=== PATIENT | female | born 1975 | race African-American/Black ===

== ENCOUNTER 2024-07-18 13:57 | Emergency (ER) | payer OTHER, SELFPAY ==
[2024-07-18 14:05] VITALS: BP 152/92
[2024-07-18 14:26] LABS: % Basophils 0.4 % (0-2); % Eosinophils 1.5 % (0-6); % Immature Granulocytes 0.3 % (0-0.5); % Lymphocytes 34.8 % (20.5-51.1); % Monocytes 6.6 % (1.7-9.3); % Neutrophils 56.4 % (42.2-75.2); Absolute Eosinophils 0.1 10^3/uL (0-0.7); Absolute Lymphocytes 2.5 10^3/uL (1.2-3.4); Absolute Monocytes 0.5 10^3/uL (0.1-0.6); Absolute Neutrophils 4.1 10^3/uL (1.4-6.5); Hematocrit 36.2 % (37.0-47.0); Hemoglobin 11.8 g/dL (12.0-16.0); Mean Corp Hgb Conc. 32.6 g/dL (33.0-37.0); Mean Corpuscular Volume 82.8 fL (81.0-99.0); Mean Platelet Volume 9.1 fL (7.4-10.4); Nucleated Red Blood Cells % 0 %; Platelet Count 368 10^3/uL (130-400); Red Blood Cell Count 4.37 10^6/uL (4.20-5.40); Red Cell Dist. Width 14.6 % (11.5-14.5); White Blood Cell Count 7.3 10^3/uL (4.8-10.8)
[2024-07-18 14:36] LABS: INR 0.93; PT 12.8 Sec (11.4-14.6)
[2024-07-18 14:54] LABS: Troponin I < 0.012 ng/ml
[2024-07-18 15:00] LABS: ALT (SGPT) 13 U/L (0-35); AST (SGOT) 17 U/L (14-36); Albumin 4.6 g/dl (3.5-5.0); Alkaline Phosphatase 120 U/L (38-126); Blood Urea Nitrogen 12 mg/dl (7-17); Calcium 9.3 mg/dl (8.4-10.2); Carbon Dioxide 24 mmol/L (22-30); Chloride 111 mmol/L (98-107); Glucose 136 mg/dl (70-99); Potassium 4.3 mmol/L (3.5-5.1); Sodium 143 mmol/L (135-145); Total Bilirubin 0.2 mg/dl (0.2-1.3); Total Protein 7.5 g/dl (6.3-8.2); eGFR > 60.00
[2024-07-18 15:30] LABS: TSH Reflex To Free T4 1.01 uIU/ml (0.47-4.68)
[2024-07-18 16:13] VITALS: BP 125/79
--- NOTE | 2024-07-18 16:31 | ED.GENMED ---
History of Present Illness
General
Chief Complaint: Heart Rate Problem
Source: patient
Exam Limitations: none
Time Seen by Provider: 07/18/24 16:25
Nursing documentation reviewed up to this point in time: agreed with
History of Present Illness
History of Present Illness:
49 yo female with history of migraines taking topiramate as needed, takes medication for anxiety but does not know what it is, estradiol cream and DHEA tablets for vaginal dryness, presents stating she was at work at 10 AM today at her desk when she
felt 'fluttering in my heart,' felt dizzy and 'off,' She states at 1 point that she was looking at her computer her eyesight became little blurry. She continued her work around the office, symptoms came and went, took blood pressure it was 168/101
at 11:23 AM. She went to urgent care and sent here for evaluation. She denies headache, she states that she was getting up and walking around the office she felt a little off balance. She denies any recent illnesses, at this time she is feeling
better
Past History
Past History
ED Past Medical History: None
ED Past Surgical History: Gynecological and Tonsilectomy
Social History
Tobacco: Non-smoker
Alcohol: None
Personal:
Living: with family
Employment: Employed
Review of Systems
Review of Systems
Allergies reviewed?: Yes
All Other Systems: ROS reviewed and negative except as documented in HPI and ROS
Constitutional: Reports fatigue; Denies fever
Respiratory: Denies trouble breathing
Cardiac: Reports palpitations; Denies chest pain or diaphoresis
ABD/GI: Denies abdominal pain or nausea
: Denies dysuria
Musculoskeletal: Reports no symptoms
Skin: Reports no symptoms
Neurological: Reports dizzy (Intermittent); Denies headache, weakness or numbness
Phy Exam
Physical Exam
Physical Exam:
GENERAL: No acute distress. A&Ox3.
CONSTITUTIONAL: Afebrile.
EYES: clear, conjunctivae normal
ENMT: moist mucus membranes, Pharynx nl, TMs normal
RESPIRATORY: Regular respirations, nonlabored, lungs clear.
CARDIOVASCULAR: Regular rate and rhythm, no murmurs, no rubs.
GI: Soft, nontender, normal BS
MUSCULOSKELETAL: Moves with ease. Well perfused.
SKIN: Warm, dry, normal
PSYCH: Normal mood and affect. Well kept, interactive and appropriate
NEUROLOGIC: Awake, alert and oriented. Speech clear, no focal neurological deficits
Course
Orders/Labs/Results
Orders:
Orders
07/18/24 13:58
EKG [Electrocardiogram (*1)] Urgent
Reason for Study: Palpitations
07/18/24 13:59
EKG- Treatment ONCE
07/18/24 14:19
Complete Blood Count/With Diff Urgent
Comprehensive Metabolic Panel Urgent
Prothrombin Time Urgent
TSH Reflex To Free T4 Urgent
Troponin I Urgent
Abnormal Lab Results
07/18/24
14:19
Hgb 11.8 L g/dL
(12.0-16.0)
Hct 36.2 L %
(37.0-47.0)
MCHC 32.6 L g/dL
(33.0-37.0)
RDW 14.6 H %
(11.5-14.5)
Chloride 111 H mmol/L
(98-107)
Glucose 136 H mg/dl
(70-99)
07/18/24 14:19
07/18/24 14:19
Vital Signs
Initial and Last Documented VS:
Initial Vital Signs
Temp Pulse Resp BP Pulse Ox
98.4 F 71 17 152/92 100
07/18/24 14:05 07/18/24 14:05 07/18/24 14:05 07/18/24 14:05 07/18/24 14:05
Last Documented Vital Signs
Temp Pulse Resp BP Pulse Ox
98.4 F 78 18 119/69 100
07/18/24 14:05 07/18/24 17:00 07/18/24 17:00 07/18/24 17:00 07/18/24 14:05
MDM/Problems Addressed
Differential Diagnosis Includes:
Viral illness, labyrinthitis, vestibular neuritis, BPPV, palpitations, TIA, dehydration, anxiety
MDM/Problems Addressed:
49 yo female with history of migraines taking topiramate as needed, takes medication for anxiety but does not know what it is, estradiol cream and DHEA tablets for vaginal dryness, presents stating she was at work at 10 AM today at her desk when she
felt 'fluttering in my heart,' felt dizzy and 'off,' She states at 1 point that she was looking at her computer her eyesight became little blurry. She continued her work around the office, symptoms came and went, took blood pressure it was 168/101
at 11:23 AM. She went to urgent care and sent here for evaluation. She denies headache, she states that she was getting up and walking around the office she felt a little off balance. She denies any recent illnesses, at this time she is feeling
better EKG NSR
EKG NSR
CBC unremarkable
CMP normal
Troponin normal
TSH normal
7:10 PM:
patient reassured and comfortable being discharged.
7:40 p.m.
Prior to discharge she walked into the bathroom and back and reported to nurse that she felt a little dizzy and imbalanced just did not feel 'right.'
On reevaluation her neuro exam is completely normal. Finger-nose intact, her blood pressure has been normal
No room spinning dizziness, no positional dizziness, no indication of BPPV
She is out of bed and ambulating well with steady gait. She can walk heel-to-toe steadily.
She states she had a similar episode a couple years ago where she felt dizzy and had palpitations and was found to have a viral illness. She states the symptoms feel very similar.
No recent head injury, no headache, no neuro deficits, walking now elicits no feeling off balance, no indication for head CT at this time. She is comfortable with this decision
Most likely mild viral illness, discussed possible middle ear infection, viral illness, no sign of dehydration or worrisome neurological signs
Reviewed return instructions such as worsening dizziness, headache, repeated vomiting, inability to walk straight
Patient states she has been fatigued lately and has an appointment with a insurance claims representative in 6 days for evaluation
Patient given copies of all test results, EKG to take to her insurance claims representative
*Pulse Oximetry
Patient hypoxic: no (Pulse ox 100% room air)
*EKG
EKG Intrepretation Date: 07/18/24
Interpretation: normal
Comparison EKG: no comparison EKG present
Heart Rate: 67
Rate: normal
Rhythm: sinus
Warren: normal axis
Interval: normal interval
QRS Pattern: normal QRS
Ischemia: no ischemia
*Restaurant Hospitality Manager Interpretation
Rate: normal
Interpretation: normal
Heart Rate: 74
Rhythm: sinus
*Critical Care Note
Total Time (30-74mins, 75-104mins- exclusive of procedures): Not Applicable
ED Attending Note
-
Portions of this chart may have been created with voice recognition software.� Occasional wrong word or��sound alike� substitutions may have occurred due to the inherent limitations of voice recognition software.
Discharge Plan
Departure
Patient Disposition: Home (Routine Discharge)
Date of Disposition: 07/18/24
Time of Disposition: 17:10
Patient with high blood pressure during this ER visit?: No
Condition: Good
Discharge Problem:
Palpitations
Instructions: Palpitations (DC), Dizziness in adults - ED discharge instructions
Referrals:
Yu Cruz PA-C [Family Provider, Family Practice]
Stand Alone Forms: Return to Work
Activity Restrictions/Additional Instructions:
As we discussed, nothing worrisome in your workup here today.
Drink plenty of fluids.
Take copies of all reports to your Biomedical Engineering Aide next week.
Interventions
Interventions:
*Risk Screen - Suicide Last Done: 07/18/24 14:07
*General Assessment Last Done: 07/18/24 14:07
*Neglect/Abuse Screening Last Done: 07/18/24 14:07
*ED COVID-19 Vaccine History Last Done: 07/18/24 14:07
*Nursing Disposition Last Done: 07/18/24 17:44
ED- Cardiac Assessment Last Done: 07/18/24 17:19
ED- Pulmonary Assessment Last Done: 07/18/24 17:19
Discharge Date and Time
Discharge Date/Time: 07/18/24 17:45
Print Language: PORTUGUESE
[2024-07-18 17:00] VITALS: BP 119/69
== END 2024-07-18 17:45 | disposition home or self-care (01) ==
LOC: EMR 13:57
PROVIDERS: EMERGENCY PHYSICIAN Emergency Medicine; FAMILY PHYSICIAN Physician Assistant Medical
DX: R00.2 Palpitations (principal)
CPT/HCPCS: 99283; 80053; 84443; 84484; 85025; 85610; 93005